=== PATIENT | male | born 1965 | race Hispanic/Latino ===

== ENCOUNTER → 2019-12-08 | Day surgery (SDC) | payer OTHER ==
[~2019-12-08] MED LIST: ADDERALL 20 MG20 MG PO; BISOPROLOL-HCT1 EAC1 PO
[2019-12-08 13:35] VITALS: BP 143/92
--- NOTE | 2019-12-09 06:57 | Operative Report ---
DATE OF PROCEDURE: 12/08/2019 SURGEON: Kalia Floyd MD PROCEDURE: Colonoscopy with polypectomy. INDICATION FOR COLONOSCOPY: Colorectal cancer screening. MEDICATIONS: The patient was done under MAC, please see anesthesiologist's note. PROCEDURE IN DETAIL: With the patient in the left lateral decubitus position, the flexible fiberoptic Olympus colonoscope was inserted into the rectum with ease and advanced all the way to the cecum. A minute polyp was noted in the cecum that was removed per the cold biopsy forceps. The rest of the cecum, ascending colon, transverse and descending and sigmoid as well as the rectum appeared to be within normal limits. There was a single diverticulum noted in the colon. The scope was then retroflexed into the distal rectum and small internal hemorrhoids were noted, none of which was actively bleeding. The scope was then straightened out, it was subsequently withdrawn, and the patient tolerated the procedure well. IMPRESSION: 1. Cecal polyp, minute, removed per the cold biopsy forceps. 2. Single diverticulum in the descending colon. 3. Internal hemorrhoids, none actively bleeding. PLAN: Follow up histology. Initiate high-fiber, low-fat diet. Initiate high-fiber supplement. The patient might benefit from a followup colonoscopy in 5 years. Kalia Floyd MD [facility] [place] /[id number] cc: MD Carline Nunez MD
== END | disposition home or self-care (01) ==
LOC: OR 05:00 → EDSEX 09:30 → MERGE 09:30
PROVIDERS: ATTEND Internal Medicine Gastroenterology
DX: Z12.11 Encounter for screening for malignant neoplasm of colon (principal); D12.0 Benign neoplasm of cecum; K57.30 Diverticulosis of large intestine without perforation or abscess without bleeding; K64.8 Other hemorrhoids; I10 Essential (primary) hypertension; Z01.810 Encounter for preprocedural cardiovascular examination; Z01.812 Encounter for preprocedural laboratory examination; Z11.59 Encounter for screening for other viral diseases; Z68.33 Body mass index [BMI] 33.0-33.9, adult
CPT/HCPCS: 45380; 93005; U0002; 45378; 45384; J1610; J2250; J3010